=== PATIENT | female | born 1960 | race Caucasian/White ===

== ENCOUNTER 2016-08-28 20:05 | Emergency (ER) | payer OTHER ==
[~2016-08-28] VITALS: Ht 154.9 cm; Wt 71.7 kg
[~2016-08-28 20:05] MED LIST: ADVIL200 M2 PO; ATIVAN1 M1 PO; BLM PO; COLACE100 M1 PO; COMPAZINE10 M1 PO; DEXAMETHASONE4 M1 PO; DIAZEPAM10 MG PO; DIAZEPAM5 M1 PO; DILAUDID 4 MG TA4 MG PO; DILAUDID8 MG PO; DIVALPROEX SOD500 M3 PO; FIORICET 50-301 EACH PO; HYDROMORPHONE H PO; LORAZEPAM1 M1; NORTRIPTYLINE H10 M2 PO; PREDNISONE20 M1 PO; QUETIAPINE FUM100 M1 PO; RIZATRIPTAN BEN10 MG PO; TRAZODONE HCL50 M1; TRAZODONE50 MG PO; ZOFRAN ODT4 M1 SL; [UNRECOGNIZED DRUG - OTHER]
[2016-08-28 20:11] VITALS: BP 136/84
--- NOTE | 2016-08-28 20:50 | ED ANKLE/FOOT INJURY COMPLAINT ---
History of Present Illness General Chief Complaint: Lower Extremity Problems Stated Complaint: L ANKLE INJURY Source: patient, old records Exam Limitations: no limitations Vital Signs & Intake/Output Vital Signs & Intake/Output Vital Signs Date Time Temp Pulse Resp B/P Pulse O2 O2 Flow FiO2 Ox Delivery Rate 08/28 2010 97.8 108 20 136/84 95 Room Air Allergies Coded Allergies: oxycodone (From PERCOCET) (Mild, PURITIS 07/16/15) pregabalin (From LYRICA) (AMS 08/21/15) Reconcile Medications Diazepam 5 MG TABLET 1 TAB PO QHS SLEEP (Reported) Divalproex Sodium (Divalproex Sodium ER) 500 MG TAB.ER.24H 2 TAB PO QAM MIGRAINES (Reported) Docusate Sodium (Colace) 100 MG CAPSULE 1 CAP PO STOOL SOFTENER (Reported) Gabapentin 600 MG TABLET 1 TAB PO TID NEUROPATHY (Reported) Hydrocodone/Acetaminophen (Vicodin 5-300 MG Tablet) 5 MG-300 MG TABLET 1 TAB PO Q6P PRN PAIN Ibuprofen (Advil) 200 MG TABLET 2 TAB PO PRN PAIN (Reported) Lorazepam (Unknown Strength) TABLET (Unknown Dose) UNKNOWN (Reported) Metoprolol Succinate 25 MG TAB 1 TAB PO DAILY HTN (Reported) Nortriptyline HCl 10 MG CAPSULE 60 MG PO QHS ANXIETY/DEPRESSION (Reported) Quetiapine Fumarate 100 MG TABLET 1 TAB PO QHS SLEEP (Reported) Trazodone HCl (Unknown Strength) TABLET (Unknown Dose) UNKNOWN (Reported) Triage Note: PT TO ED C/O LEFT ANKLE PAIN S/P TWISTING IT WHILE 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 SWELLING NOTED. REFUSED IBUPROFIN AND TYLENOL IN TRIAGE. Triage Nurses Notes Reviewed? yes HPI: Patient was walking her dog when she misstepped and inverted her left ankle. She heard a pop. Since then she has been having pain and swelling to the lateral aspect of her left ankle. The pain radiates around the posterior aspect of her ankle. The pain is constant. She rates the pain as 10 out of 10. The pain is throbbing in nature. The pain increases with any movement. There is no numbness or tingling. Patient denies any other injury. Past History Travel History Traveled to [place] past 21 day No Medical History Any Pertinent Medical History? 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 No Review of Systems Review of Systems Constitutional: Reports: no symptoms. Respiratory: Reports: no symptoms. Cardiovascular: Reports: no symptoms. GI: Reports: no symptoms. Musculoskeletal: Reports: see HPI, joint pain, joint swelling. Neurological/Psychological: Reports: no symptoms. Immunologic/Allergic: Reports: no symptoms. Physical Exam Physical Exam General Appearance: well developed/nourished, alert, awake, moderate distress Head: atraumatic, normal appearance Eyes: Bilateral: PERRL, EOMI. Neck: normal inspection, supple, full range of motion, no midline tenderness Cardiovascular/Respiratory: normal breath sounds, normal peripheral pulses, regular rate/rhythm, no respiratory distress Leg/Knee/Thigh Left: normal range of motion, normal inspection Leg/Knee/Thigh Right: normal range of motion, normal inspection Ankle Left: evidence of injury, pain, soft tissue tenderness, swelling, tenderness, limited range of motion Foot Left: normal inspection, normal range of motion Neuro/Vascular: normal motor function, normal sensation Psychiatric: awake, alert, oriented x 3 Skin: intact, normal color, warm/dry Progress Differential Diagnosis: fracture, dislocation, sprain, contusion Plan of Care: Orders Procedure Date/time Status Durable Medical Equipment 08/28 2108 Active Diagnostic Imaging: Viewed by Me: Radiology Read. Discussed w/RAD: Radiology Read. Radiology Impression: PATIENT: IMELDA AZEVEDO PRESENT AGE: 56 PATIENT ACCOUNT NO: [id number] : 61 LOCATION: [facility] ORDERING PHYSICIAN: ROSALINO GU MD SERVICE DATE: 08/28/16 EXAM TYPE: RAD - XRY-ANKLE 3 OR MORE VIEWS L EXAMINATION: LEFT ANKLE 3 VIEWS CLINICAL INFORMATION: Left ankle pain and swelling. COMPARISON: None. TECHNIQUE: AP, lateral, oblique views of the left ankle were obtained. FINDINGS: There is a transverse fracture through the distal left fibula with overlying soft tissue swelling. There is no ankle joint effusion. IMPRESSION: Nondisplaced transverse fracture through the lateral malleolus with overlying soft tissue swelling. DICTATED BY: LENKA MCGREGOR MD DATE/TIME DICTATED:08/28/162111 BUSINESS ANALYST PROJECT MANAGER:LOUISE DATE/TIME TRANSCRIBED:08/28/162111 CONFIDENTIAL, DO NOT COPY WITHOUT APPROPRIATE AUTHORIZATION. <Electronically signed in Other Vendor System> SIGNED BY: LENKA MCGREGOR MD 08/28/162116 Departure Departure Disposition: HOME OR SELF CARE Condition: Stable Clinical Impression Primary Impression: Closed left ankle fracture Referrals: JANETTE CHERY,JOSUE Hope (PCP/Family) DESHAWN CHERY,GUNJAN Additional Instructions: KEEP SPLINT ON AND USE CRUTCHES FOLLOW UP WITH YOUR ORTHOPEDIST RETURN FOR ANY CONCERNS Departure Forms: Customer Survey General Discharge Information Prescriptions: Current Visit Scripts Hydrocodone/Acetaminophen (Vicodin 5-300 MG Tablet) 1 TAB PO Q6P PRN PAIN #20 TAB Procedures Splinting Location: LEFT ANKLE Manual Alignment Performed: No Hand-Made Type: orthoglass Splint: POSTERIOR Splint Applied By: splint applied by me Pre-Proc Neuro Vasc Exam: normal Post-Proc Neuro Vasc Exam: normal
[2016-08-28] MEDS ORDERED: VICODIN 5-3001 EACH PO (21:11)
--- NOTE | 2016-08-28 21:17 | RADIOLOGY REPORT ---
EXAMINATION: LEFT ANKLE 3 VIEWS CLINICAL INFORMATION: Left ankle pain and swelling. COMPARISON: None. TECHNIQUE: AP, lateral, oblique views of the left ankle were obtained. FINDINGS: There is a transverse fracture through the distal left fibula with overlying soft tissue swelling. There is no ankle joint effusion. IMPRESSION: Nondisplaced transverse fracture through the lateral malleolus with overlying soft tissue swelling.
[2016-08-28] MEDS ORDERED: METOPROLOL SUCC25 M1 PO (21:28)
[2016-08-28] MEDS ORDERED: GABAPENTIN600 M1 PO (21:28)
== END 2016-08-28 21:29 ==
LOC: ERH 20:05
DX: S82.62XA Displaced fracture of lateral malleolus of left fibula, initial encounter for closed fracture (principal); X58.XXXA Exposure to other specified factors, initial encounter; Y92.9 Unspecified place or not applicable; Y93.K1 Activity, walking an animal
CPT/HCPCS: 73610-LT

== ENCOUNTER 2017-11-12 14:04 | Emergency (ER) | payer OTHER ==
[~2017-11-12] VITALS: Ht 154.9 cm; Wt 71.7 kg
[~2017-11-12 14:04] MED LIST changes: +AUGMENTIN 875-1 EACH PO; +DIFLUCAN150 M1 PO; +GABAPENTIN600 M1 PO; +METOPROLOL SUCC25 M1 PO; +VICODIN 5-3001 EACH PO
[2017-11-12 14:30] VITALS: BP 112/78
[2017-11-12 16:32] LABS: ABSOLUTE BASOPHIL COUNT 0 /CUMM (0.0-0.2); ABSOLUTE EOSINOPHIL COUNT 0.1 /CUMM (0.0-0.7); ABSOLUTE GRANULOCYTE CT 5.6 /CUMM (1.4-6.5); ABSOLUTE LYMPH COUNT 2.1 /CUMM (1.2-3.4); ABSOLUTE MONOCYTE COUNT 0.7 /CUMM (0.10-0.60); BASOPHIL % 0.5 % (0.0-2.0); EOSINOPHIL % 1.5 % (0-5); GRANULOCYTE % 65.5 % (42.2-75.2); MEAN CORPUSCULAR HGB 29.3 PG (27.0-31.0); MEAN CORPUSCULAR HGB CONC 33.3 G/DL (33.0-37.0); MEAN PLATELET VOLUME 7.1 FL (7.4-10.4); PLATELET COUNT 416 /CUMM (130-400); WHITE BLOOD CELL COUNT 8.5 /CUMM (4.8-10.8)
--- NOTE | 2017-11-12 18:27 | ED GENERAL ADULT ---
History of Present Illness General Chief Complaint: Animal/Insect Bite Stated Complaint: CAT BITE Source: patient Exam Limitations: no limitations Vital Signs & Intake/Output Vital Signs & Intake/Output Vital Signs Date Time Temp Pulse Resp B/P B/P Pulse O2 O2 Flow FiO2 Mean Ox Delivery Rate 11/12 1430 98.8 99 20 112/78 97 Room Air Allergies Coded Allergies: oxycodone (From PERCOCET) (Mild, PURITIS 07/16/15) pregabalin (From LYRICA) (AMS 08/21/15) Reconcile Medications Amoxicillin/Potassium Clav (Augmentin 875-125 Tablet) 875 MG-125 MG TABLET 1 TAB PO BID infection Diazepam 5 MG TABLET 1 TAB PO QHS SLEEP (Reported) Divalproex Sodium (Divalproex Sodium ER) 500 MG TAB.ER.24H 2 TAB PO QAM MIGRAINES (Reported) Docusate Sodium (Colace) 100 MG CAPSULE 1 CAP PO STOOL SOFTENER (Reported) Fluconazole (Diflucan) 150 MG TABLET 1 TAB PO ONCE yeast infection Gabapentin 600 MG TABLET 1 TAB PO TID NEUROPATHY (Reported) Hydrocodone/Acetaminophen (Vicodin 5-300 MG Tablet) 5 MG-300 MG TABLET 1 TAB PO Q6P PRN PAIN Ibuprofen (Advil) 200 MG TABLET 2 TAB PO PRN PAIN (Reported) Lorazepam (Unknown Strength) TABLET (Unknown Dose) UNKNOWN (Reported) Metoprolol Succinate 25 MG TAB 1 TAB PO DAILY HTN (Reported) Nortriptyline HCl 10 MG CAPSULE 60 MG PO QHS ANXIETY/DEPRESSION (Reported) Quetiapine Fumarate 100 MG TABLET 1 TAB PO QHS SLEEP (Reported) Trazodone HCl (Unknown Strength) TABLET (Unknown Dose) UNKNOWN (Reported) Triage Note: PT TO ED C/O WORSENING RED AREA TO CAT BITE ON LEFT FOREARM. PT WAS BIT BY HER CAT ON SUNDAY, SEEN IN ED SUNDAY, GIVEN IV ABX AND SENT HOME WITH PO ABX. PT STATES IT IS RED/HOT AND SPREADING. AFEBRILE. STATES PAIN IS WORSE. CAT IS UP TO DATE ON SHOTS. Triage Nurses Notes Reviewed? yes Onset: Abrupt Duration: day(s): Timing: constant HPI: 57 y/o female with h/o anxiety, depression, migraines, disc herniations, chronic back pain presenting for re-eval of a cat bite to her left forearm sustained 2 days ago from her own cat. Was seen in the ED yesterday, given a dose of IV unasyn and sent home with po augmentin. Has has taken one dose of the augmentin since being home and noticed that the redness has spread slightly beyond the borders of the skin marking that was done in the ED. Denies fevers, nausea, vomiting. (Beena Talbert) Past History Travel History Traveled to [place] past 21 day No Medical History Any Pertinent Medical History? 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 No (Beena Talbert) Review of Systems Review of Systems Constitutional: Reports: no symptoms. EENTM: Reports: no symptoms. Respiratory: Reports: no symptoms. Cardiovascular: Reports: no symptoms. GI: Reports: no symptoms. Genitourinary: Reports: no symptoms. Musculoskeletal: Reports: see HPI. Skin: Reports: see HPI. Neurological/Psychological: Reports: no symptoms. Hematologic/Endocrine: Reports: no symptoms. Immunologic/Allergic: Reports: no symptoms. (Beena Talbert) Physical Exam Physical Exam General Appearance: well developed/nourished, no apparent distress, alert, awake , comfortable Head: atraumatic, normal appearance Eyes: Bilateral: normal appearance. Neck: normal inspection Respiratory: normal breath sounds, lungs clear Cardiovascular: regular rate/rhythm Gastrointestinal: soft, non-tender Back: normal inspection Extremities: on exam of the left forearm there is an erythematous area to the dorsum of the distal forearm with small puncture wound in the center. No purulent drainage. Unrestricted ROM at the elbow and wrist joints. LUE is NV intact. Neurologic/Psych: awake, alert, oriented x 3, normal gait, normal mood/affect Skin: intact, warm/dry Core Measures ACS in differential dx? No CVA/TIA Diagnosis: No Sepsis Present: No Sepsis Focused Exam Completed? No (Beena Talbert) Progress Differential Diagnoses I considered the following diagnoses in my evaluation of the patient: [ cellulitis vs abscess, low concern for sepsis vs septic joint] Plan of Care: Orders Procedure Date/time Status BLOOD CULTURE 11/12 154 Active [facility] SED RATE 11/12 154 Complete C-REACTIVE PROTEIN 11/12 154 Complete COMPREHENSIVE METABOLIC PANEL 11/12 154 Complete CBC WITHOUT DIFFERENTIAL 11/12 154 Complete Laboratory Tests 11/12/17 1603: Anion Gap 13, Estimated GFR > 60, BUN/Creatinine Ratio 10.0, Glucose 87, Calcium 9.6, Total Bilirubin 0.2, AST 23, ALT 48, Alkaline Phosphatase 98, C-Reactive Prot, Quant 2.3 H, Total Protein 7.3, Albumin 4.4, Globulin 2.9, Albumin/ Globulin Ratio 1.5, CBC w Diff NO MAN DIFF REQ, RBC 5.00, MCV 88.0, MCH 29.3, MCHC 33.3, RDW 14.0, MPV 7.1 L, Gran % 65.5, Lymphocytes % 24.7, Monocytes % 7.8, Eosinophils % 1.5, Basophils % 0.5, Absolute Granulocytes 5.6, Absolute Lymphocytes 2.1, Absolute Monocytes 0.7 H, Absolute Eosinophils 0.1, Absolute Basophils 0, ESR [place] [id number] Microbiology 11/12 1617 BLOOD: Blood Culture - RECD 11/12 154 BLOOD: Blood Culture - RECD No leukocytosis on labs, pt has been afebrile. Given second IV dose of unasyn in the ED today. Instructed to continue her augmentin. Marked the new borders. Pt will f/u in the ED in 2 days for wound recheck, or sooner if redness continues to spread or she develops fevers or NV. Given strict return precautions. Initial ED EKG: none (Beena Talbert) Departure Departure Disposition: HOME OR SELF CARE Condition: Stable Clinical Impression Primary Impression: Cat bite Referrals: Ace CHERY,Chandler Hope (PCP/Family) Additional Instructions: Continue taking augmentin as prescribed. Follow up with your primary care provider for re-evaluation. Return to the emergency department for any new or worsening symptoms. Departure Forms: Customer Survey General Discharge Information (Beena Talbert) PA/SAND BOBBER Co-Sign Statement Statement: ED Attending supervision documentation- I saw and evaluated the patient. I have also reviewed all the pertinent lab results and diagnostic results. I agree with the findings and the plan of care as documented in the PA's/SAND BOBBER's documentation. x I have reviewed the ED Record and agree with the PA's/SAND BOBBER's documentation. [] Additions or exceptions (if any) to the PAs/SAND BOBBER's note and plan are summarized below: [] (Giuliano CHERY,Stephen) Critical Care Note Critical Care Note Critical Care Time: non-applicable (Beena Talbert)
== END 2017-11-12 18:36 ==
LOC: ERH 14:04
PROVIDERS: Physician Assistant Medical
DX: S51.852D Open bite of left forearm, subsequent encounter (principal); W55.01XD Bitten by cat, subsequent encounter
CPT/HCPCS: 87040; 99281